=== PATIENT | female | born 1980 | race African-American/Black ===

== ENCOUNTER 2021-08-31 12:44 | Emergency (ER) | payer BC ==
[~2021-08-31] VITALS: Ht 162.6 cm; Wt 81.7 kg
[2021-08-31] MEDS ORDERED: POLYMYXIN B/TMP10 ML INTRAOCULR (14:49)
[2021-08-31 14:57] VITALS: BP 111/70
== END 2021-08-31 14:58 | disposition home or self-care (01) ==
LOC: M.ERS 12:44
DX: S05.01XA Injury of conjunctiva and corneal abrasion without foreign body, right eye, initial encounter (principal); Z98.51 Tubal ligation status; Z88.0 Allergy status to penicillin; W20.8XXA Other cause of strike by thrown, projected or falling object, initial encounter; Y93.89 Activity, other specified; Y92.89 Other specified places as the place of occurrence of the external cause; Y99.8 Other external cause status